=== PATIENT | female | born 1975 | race Caucasian/White ===

== ENCOUNTER 2017-09-02 03:51 | Emergency (ER) | payer SELFPAY ==
[~2017-09-02] VITALS: Ht 170.2 cm; Wt 122.7 kg
[2017-09-02] MEDS ORDERED: HCTZ 25MG25 MG PO (04:07)
[2017-09-02] MEDS ORDERED: NORVASC 5MG5 MG/TAB PO (04:07)
[2017-09-02] MEDS ORDERED: TOPROL XL100 MG PO (04:07)
[2017-09-02] MEDS ORDERED: ZOCOR20 M1 PO (04:08)
[2017-09-02] MEDS ORDERED: AMOXICILLIN 50500 MG PO (04:22)
[2017-09-02] MEDS ORDERED: NORCO 325 MG-51 TA1 PO (04:22)
[2017-09-02 05:10] VITALS: BP 158/98
== END 2017-09-02 05:10 | disposition home or self-care (01) ==
LOC: ED 03:51
DX: K04.7 Periapical abscess without sinus (principal); K08.89 Other specified disorders of teeth and supporting structures; I10 Essential (primary) hypertension